=== PATIENT | male | born 1965 | race Caucasian/White ===

== ENCOUNTER 2016-12-11 18:41 | Emergency (ER) | payer SELFPAY ==
[~2016-12-11] VITALS: Ht 154.9 cm; Wt 59.0 kg
[2016-12-11 19:14] VITALS: BP 135/74
== END 2016-12-12 00:33 | disposition left against medical advice (07) ==
LOC: ER 12-12
DX: S61.411A Laceration without foreign body of right hand, initial encounter (principal); X58.XXXA Exposure to other specified factors, initial encounter; Y93.9 Activity, unspecified; Y92.9 Unspecified place or not applicable; Z53.21 Procedure and treatment not carried out due to patient leaving prior to being seen by health care provider

== ENCOUNTER 2016-12-31 20:03 | Emergency (ER) | payer SELFPAY ==
[~2016-12-31] VITALS: Ht 152.4 cm; Wt 51.0 kg
[2016-12-31 22:40] VITALS: BP 118/84
[2016-12-31] MEDS ORDERED: ACETAMINOPHEN 500MG TABLET PO ONE (23:30)
[2016-12-31] MEDS ORDERED: TETANUS, DIPHTHERIA, PERTUSSIS VAC/PF 0.5ML (>7YR OLD) IM ONE (23:30)
== END 2017-01-01 00:11 | disposition home or self-care (01) ==
LOC: ER 20:04
DX: K05.00 Acute gingivitis, plaque induced (principal); K06.8 Other specified disorders of gingiva and edentulous alveolar ridge
CPT/HCPCS: 90471; 90715; 99283